=== PATIENT | female | born 1960 | race Hispanic/Latino ===

== ENCOUNTER → 2025-02-20 | Outpatient (REF) | payer OTHER | LOC: MAMMO 08:14 | PROVIDERS: ATTEND Internal Medicine | DX: Z12.31 Encounter for screening mammogram for malignant neoplasm of breast (principal); M81.0 Age-related osteoporosis without current pathological fracture; M15.9 Polyosteoarthritis, unspecified | CPT/HCPCS: 72110; 77067; 77080 ==